=== PATIENT | male | born 1965 | race American Indian/Alaskan Native ===

== ENCOUNTER 2017-03-25 06:17 | Day surgery (SDC) | payer OTHER ==
[~2017-03-25 06:17] MED LIST: MARCAINE-EPI 0.25%-1:200,000 INFILTRATI ONE
[2017-03-25] MEDS ORDERED: NACL BACTERIOSTATIC INFILTRATI ONE (07:04)
[2017-03-25] MEDS ORDERED: DIPRIVAN 10 MG/ML IV ONE ×3 (07:15→10:55)
[2017-03-25] MEDS ORDERED: ZOFRAN IV PRN (07:17)
[2017-03-25] MEDS ORDERED: MORPHINE IV PRN (07:17)
--- NOTE | 2017-03-25 07:18 | Anesthesia Day of Surgery ---
Anesthesia Day of Surgery - Day of Surgery Patient Examined: Yes Patient H&P Reviewed: Yes Patient is NPO: Yes
--- NOTE | 2017-03-25 07:18 | Anesthesia Consultation ---
Anesthesia Consult and Med Hx Date of service: 03/25/17 - Airway Anesthetic Teeth Evaluation: Good, Chipped (top right molar), Crowns (top left crown came off) ROM Head & Neck: Adequate Mental/Hyoid Distance: Adequate Mallampati Class: Class II Intubation Access Assessment: Probably Good - Pulmonary Exam CTA: Yes - Cardiac Exam Cardiac Exam: RRR - Pre-Operative Health Status ASA Pre-Surgery Classification: ASA3 Proposed Anesthetic Plan: General Nerve Block: IS - Pulmonary Hx Smoking: Yes (quit in 2008, smoked 6 months) Hx Asthma: No SOB: No Hx Sleep Apnea: Yes - Cardiovascular System Hx Hypertension: Yes (30 YRS) Hx Coronary Artery Disease: No - Central Nervous System Hx Seizures: No CVA: No Hx Back Pain: Yes Hx Psychiatric Problems: No - Endocrine Hx Renal Disease: No Hx Cirrhosis: No Hx Insulin Dependent Diabetes: Yes Hx Thyroid Disease: No Hx Hypothyroidism: No - Other Systems Hx Alcohol Use: Yes (SOCIALLY) Hx Substance Use: No Hx Cancer: No Hx Obesity: Yes (morbid, bmi > 40) - Additional Comments Anesthesia Medical History Comments: h/o PONV
[2017-03-25] MEDS ORDERED: XYLOCAINE MPF 2% ONE (07:23)
[2017-03-25] MEDS ORDERED: QUELICIN ONE (07:24)
[2017-03-25] MEDS ORDERED: SUBLIMAZE ONE (07:25)
[2017-03-25] MEDS ORDERED: XYLOCAINE 1% 20 mL ONE (07:51)
[2017-03-25] MEDS ORDERED: MARCAINE-EPI 0.5%-1:200,000 INFILTRATI ONE (07:51)
[2017-03-25] MEDS ORDERED: DECADRON ONE ×2 (07:51→10:39)
[2017-03-25] MEDS ORDERED: ADRENALIN ONE (07:57)
[2017-03-25] MEDS ORDERED: MARCAINE-EPI 0.25%-1:200,000 INFILTRATI ONE ×2 (07:57→11:25)
[2017-03-25] MEDS: SUBLIMAZE IV NR ×2 (07:58→08:02)
[2017-03-25] MEDS ORDERED: VERSED IV NR (08:00)
[2017-03-25] MEDS ORDERED: REGLAN PO NR (08:00)
[2017-03-25] MEDS ORDERED: NACL 0.9% 1000 ML 1,000 ML IV SCH (08:00)
[2017-03-25] MEDS ORDERED: PEPCID PO NR (08:00)
[2017-03-25] MEDS ORDERED: ePHEDrine SULFATE ONE (08:00)
[2017-03-25] MEDS ORDERED: TRANSDERM-SCOP TD NR (08:00)
[2017-03-25] MEDS ORDERED: ROBINUL ONE ×2 (09:01→10:20)
[2017-03-25] MEDS ORDERED: ANCEF/STERILE WATER 2 GM/20 ML IV NR (09:05)
[2017-03-25] MEDS ORDERED: ADRENALIN IV ONE (10:09)
[2017-03-25] MEDS ORDERED: NACL 0.9% IR ONE (10:09)
[2017-03-25] MEDS ORDERED: NEOSTIGMINE ONE (10:20)
[2017-03-25] MEDS ORDERED: NACL 0.9% 100 ML ONE (10:21)
[2017-03-25] MEDS ORDERED: NEO SYNEPHRINE ONE (10:21)
[2017-03-25] MEDS ORDERED: ZEMURON IV ONE (10:24)
[2017-03-25] MEDS ORDERED: ZOFRAN ONE (10:46)
[2017-03-25] MEDS ORDERED: NACL 0.9% 1000 ML 1,000 ML ONE (11:04)
[2017-03-25 12:40] VITALS: BP 101/65
--- NOTE | 2017-03-25 13:28 | Post Anesthesia Evaluation ---
- Post Anesthesia Evaluation Patient Participated: Yes Airway Patent: Yes Stable Respiratory Function: Yes Nausea/Vomiting: No Temp > 96.8F: Yes Pain Manageable: Yes Adequeate Hydration: Yes Anesthesia Complications: No Block Receding Appropriately: Yes Patient on Ventilator: No
--- NOTE | 2017-03-26 08:06 | Operative Report ---
PREOPERATIVE DIAGNOSES: Left shoulder with SLAP tear, bursitis, impingement, biceps tendinitis, and morbid obesity. POSTOPERATIVE DIAGNOSES: 1. Left shoulder with type 2 SLAP tear and biceps tendinitis. 2. Subacromial impingement bursitis. 3. Rotator cuff attenuation bursal surface. 4. Extensive global labral fraying. 5. Morbid obesity. PROCEDURE PERFORMED: 1. Left shoulder arthroscopy and arthroscopic biceps tenodesis - complex - morbid obesity. 2. Arthroscopic debridement, global labral tearing. 3. Arthroscopic subacromial bursectomy, decompression. SURGEON: Jose Hargrove MD DEAN OF INSTRUCTION: Rudy Jaramillo CSA ANESTHESIA: General plus scalene block. ESTIMATED BLOOD LOSS: Minimal. COMPLICATIONS: None. OPERATIVE PROCEDURE: The patient underwent successful induction of anesthesia. He was carefully positioned in the beach chair position. It was a complex procedure. The patient is morbidly obese. Arthroscopy was carried out with the standard posterior portal. The entry was made ____ was carried out. Articular surface relatively observed with some limited attenuation of the cartilage. Mild articular surface rotator cuff attenuation was noted and felt to be less than 10% of the subscapularis, supraspinatus, and infraspinatus. The labrum demonstrated 360-degree fraying, which was debrided with a full radius resector utilizing both portals. He had a type 2 SLAP and tendinitis noted in the biceps. Given these findings, preoperative symptoms were felt appropriate to proceed with biceps tenodesis. Through an anterior lateral portal over the biceps tendon, the biceps was retrieved and resected off of the labrum. The labrum was quite stable. Following this resection, it did not require fixation. The biceps was utilizing appropriate visualization techniques. The groove released. The biceps was then tagged utilizing Krackow suture. The groove was then appropriately prepared with a purnima. A [employer] anchor was then placed 5.5 mm tethering the tendon with an excellent ____ with no sign of impingement. At this point in time, the arthroscope was ____ in the posterior portal. ____ bursitis and attenuation of the bursal surface of the cuff, which was meticulously debrided ____ further repair. He had a limited acromial impingement sign, so limited acromioplasty was performed as well, which eliminated this. At this point in time, after thorough evaluation, the ____ was removed. Ports were closed with nylon sutures. Steri-Strips applied. He was taken to recovery in satisfactory condition having tolerated the procedure. JOB# [id number] JORGEP/NABOR
== END 2017-03-25 13:55 | disposition home or self-care (01) ==
LOC: OR 06:17
PROVIDERS: ATTEND Orthopaedic Surgery
DX: S43.432A Superior glenoid labrum lesion of left shoulder, initial encounter (principal); M75.52 Bursitis of left shoulder; M75.42 Impingement syndrome of left shoulder; I10 Essential (primary) hypertension; E66.01 Morbid (severe) obesity due to excess calories; Z68.42 Body mass index [BMI] 45.0-49.9, adult; Z87.891 Personal history of nicotine dependence; Z72.89 Other problems related to lifestyle; Z79.899 Other long term (current) drug therapy; X58.XXXA Exposure to other specified factors, initial encounter
CPT/HCPCS: 29823; 29828; 82962; A4217; C1713; J0171; J0330; J0690; J1100; J2250; J2270; J2370; J2405; J2704; J2710; J3010; J7030